=== PATIENT | female | born 1995 | race Caucasian/White ===

== ENCOUNTER 2022-04-09 10:09 | Inpatient (IN) | payer BC ==
[2022-04-08 12:25] LABS: #Monocytes 0.4 10x3/uL (0.0-1.1); %Basophils 0.2 % (0.0-2.0); %Eosinophils 0.4 % (0.0-6.0); %Lymphocytes 21.4 % (18.0-47.0); %Monocytes 4.8 % (0.0-10.0); Mean Corpuscular HGB CONC 34.3 g/dL (32.0-36.0); Mean Corpuscular Hemoglobin 28.8 pg (27.0-33.0); Mean Corpuscular Volume 83.9 fl (81.6-98.3); Mean Platelet Volume 10.4 fl (7.4-10.4); Platelet Count 293 10x3/uL (150-450); RBC Distribution Width 13.3 % (11.5-14.5); Red Blood Cell (RBC) Count 4.17 10x6/uL (3.90-5.03); White Blood Cell (WBC) Count 8.3 10x3/uL (3.5-10.5)
[2022-04-08 13:00] LABS: SARS-CoV-2 NAA Rapid Test Not Detected (NotDetected)
[2022-04-08 13:01] LABS: Syphilis Antibody Nonreactive (Nonreactive); Syphilis Antibody Index 0.04 S/CO (<1.00 Non-Reactive)
[2022-04-08 13:02] LABS: HBSAg Index 0.13 S/CO (0-0.99); Hep B Surf Ag Non-Reactive S/CO (NonReactive)
[~2022-04-09 10:09] MED LIST: Bicitra 30 ML UDCUP PO PRN; CEFAZOLIN 2 GM in Sodium Chloride 0.9% 100 ML IVPB SCH; Famotidine/PF 20 mg/2ml Vial SLOW IVP PRN; Lactated Ringer's 1,000 ML IV SCH; Ondansetron PF 4 MG/2 ML Vial IVP PRN; Promethazine HCl 25 MG/ML VIAL IM PRN; hydrALAZINE 20 MG/ML VIAL SLOW IVP PRN
[2022-04-09 11:33] VITALS: BMI 46.4
[2022-04-09] MEDS ORDERED: CEFAZOLIN 2 GM VIAL ONE (11:45)
[2022-04-09] MEDS ORDERED: Ondansetron PF 4 MG/2 ML Vial ONE (11:59)
[2022-04-09] MEDS ORDERED: ePHEDrine Sulfate 50 MG/10 ML VIAL ONE (11:59)
[2022-04-09] MEDS ORDERED: Morphine PF 10 MG/10 ML VIAL ONE (11:59)
[2022-04-09] MEDS ORDERED: Fentanyl 100 MCG/2 ML VIAL ONE (11:59)
[2022-04-09] MEDS ORDERED: Dexamethasone 4 mg/ml Vial ONE (11:59)
[2022-04-09] MEDS ORDERED: Phenylephrine 40 MG/NS 250 ML 250 ML ONE (12:00)
[2022-04-09] MEDS ORDERED: Oxytocin 10 UNITS/ML VIAL ONE ×2 (12:00→12:42)
[2022-04-09] MEDS ORDERED: Ketorolac Tromethamine 30 MG/ML VIAL ONE (12:00)
[2022-04-09] MEDS ORDERED: Meperidine HCl/PF 25 MG/ML VIAL SLOW IVP PRN (13:54)
[2022-04-09] MEDS ORDERED: Promethazine HCl 25 MG SUPP PR PRN (13:54)
[2022-04-09] MEDS ORDERED: Ketorolac Tromethamine 30 MG/ML VIAL IVP PRN (13:54)
[2022-04-09] MEDS ORDERED: Ondansetron PF 4 MG/2 ML Vial IVP PRN ×2 (13:54→15:48)
[2022-04-09] MEDS ORDERED: Fentanyl 100 MCG/2 ML VIAL SLOW IVP PRN (13:54)
[2022-04-09] MEDS ORDERED: L&D-Morphine 4 MG/ML VIAL SLOW IVP PRN (13:54)
[2022-04-09] MEDS ORDERED: Ondansetron HCl/PF 4 MG/2 ML Vial IVP PRN (13:54)
[2022-04-09] MEDS ORDERED: Moisturizing Cream (Eucerin) 113 GM JAR TOP PRN (13:54)
[2022-04-09] MEDS ORDERED: Naloxone HCl 0.4 mg/ml Vial IV PRN (13:54)
[2022-04-09] MEDS ORDERED: diphenhydrAMINE 50 MG/ML VIAL IVP PRN (13:54)
[2022-04-09] MEDS ORDERED: Naloxone HCl 0.4 mg/ml Vial IVP PRN ×2 (13:54)
[2022-04-09] MEDS ORDERED: Promethazine HCl 25 MG/ML VIAL IM PRN ×2 (13:54→15:48)
[2022-04-09] MEDS ORDERED: Ketorolac Tromethamine 30 MG/ML VIAL IVP SCH (14:00)
[2022-04-09] MEDS ORDERED: Communication Order-Pharmacy FS SCH (14:00)
[2022-04-09] MEDS ORDERED: NS w/ Oxytocin 30 units 500 ML IV SCH (15:48)
[2022-04-09] MEDS ORDERED: Misoprostol 200 MCG TAB PR PRN (15:48)
[2022-04-09] MEDS ORDERED: Varicella virus, LIVE 0.5 ML VIAL SC ONE (15:48)
[2022-04-09] MEDS ORDERED: Measles/Mumps/Rubella 10 MCG/0.5 ML VIAL SC ONE (15:48)
[2022-04-09] MEDS ORDERED: Simethicone Chewable 80 MG TAB PO PRN (15:48)
[2022-04-09] MEDS ORDERED: hydrALAZINE 20 MG/ML VIAL SLOW IVP PRN (15:48)
[2022-04-09] MEDS ORDERED: diphenhydrAMINE 25 MG CAP PO PRN (15:48)
[2022-04-09] MEDS ORDERED: Lanolin Ointment 7 GM TUBE TOP PRN (15:48)
[2022-04-09] MEDS ORDERED: Boostrix 0.5 ML (Tdap) VIAL (>/=7 yrs of age) IM ONE (15:48)
[2022-04-09] MEDS ORDERED: Bisacodyl 10 MG SUPP PR PRN (15:48)
[2022-04-09] MEDS: Docusate 100 MG CAP PO SCH (21:43)
[2022-04-10] MEDS ORDERED: HYDROcodone/Acetaminophen 5/325 mg Tablet PO PRN ×2 (02:00)
[2022-04-10 04:43] LABS: Hemoglobin 10.8 g/dL (12.0-15.5); Mean Corpuscular Hemoglobin 28.9 pg (27.0-33.0); Mean Platelet Volume 10.7 fl (7.4-10.4); Platelet Count 281 10x3/uL (150-450); RBC Distribution Width 13.1 % (11.5-14.5); Red Blood Cell (RBC) Count 3.74 10x6/uL (3.90-5.03); White Blood Cell (WBC) Count 12.4 10x3/uL (3.5-10.5)
[2022-04-10] MEDS: Prenatal Vitamin 1 TAB PO SCH (08:01)
[2022-04-10] MEDS: Docusate 100 MG CAP PO SCH ×2 (08:01→21:29)
[2022-04-10] MEDS: Ibuprofen 800 MG TAB PO SCH ×2 (14:27→21:29)
[2022-04-10] MEDS ORDERED: Enoxaparin Sodium 40 MG/0.4 ML SYRINGE SC SCH (21:00)
[2022-04-11] MEDS: Ibuprofen 800 MG TAB PO SCH (05:19)
[2022-04-11 07:53] VITALS: BP 114/55; TEMP 98.4
[2022-04-11] MEDS: Prenatal Vitamin 1 TAB PO SCH (08:59)
[2022-04-11] MEDS: Docusate 100 MG CAP PO SCH (08:59)
[2022-04-11] MEDS ORDERED: Enoxaparin Sodium 40 MG/0.4 ML SYRINGE SC SCH (09:00)
== END 2022-04-11 09:54 | disposition home or self-care (01) | DRG 787 ==
LOC: CSHLD 10:09 → CSHPP 16:16
PROVIDERS: ADMIT Obstetrics & Gynecology; ATTEND Obstetrics & Gynecology
PROC: 10D00Z1 Extraction of Products of Conception, Low, Open Approach (ICD-10-PCS; principal; 2022-04-09)
DX: O34.211 Maternal care for low transverse scar from previous cesarean delivery (principal); O10.92 Unspecified pre-existing hypertension complicating childbirth; Z3A.38 38 weeks gestation of pregnancy; Z37.0 Single live birth; Z20.822 Contact with and (suspected) exposure to COVID-19; O99.214 Obesity complicating childbirth; E66.01 Morbid (severe) obesity due to excess calories
CPT/HCPCS: 36415; 51702; 85025; 85027; 86780; 86850; 86900; 86901; 87340; J1100; J1650; J1885; J2274; J2405; J2590; J3010; U0002